=== PATIENT | male | born 1960 | race Caucasian/White ===

== ENCOUNTER 2019-01-20 08:59 | Day surgery (SDC) | payer OTHER ==
[2019-01-20] MEDS ORDERED: FENTAnyl 50 MCG/ML VIAL (11:18)
[2019-01-20] MEDS ORDERED: MIDAZOLAM 1 MG/ML 2 ML INJ ×2 (11:18)
== END 2019-01-20 12:04 | disposition home or self-care (01) ==
LOC: GIL 08:59
DX: K92.1 Melena (principal); K64.8 Other hemorrhoids; K21.0 Gastro-esophageal reflux disease with esophagitis; K29.60 Other gastritis without bleeding
CPT/HCPCS: 43239; 88305; 88312

== ENCOUNTER 2019-02-14 06:27 | Day surgery (SDC) | payer OTHER ==
[~2019-02-14 06:27] MED LIST: CEFAZOLIN 2 GM/50 ML (PMX) 50 ML IVPB
[2019-02-14] MEDS: BUPIVACAINE 0.25% (MPF) 30 ML INJ (06:56)
[2019-02-14] MEDS: SOD CHLORIDE 0.9% 1,000 ML IV (07:05)
[2019-02-14] MEDS ORDERED: MIDAZOLAM 1 MG/ML 2 ML INJ (07:50)
[2019-02-14] MEDS ORDERED: FENTAnyl 50 MCG/ML VIAL (07:50)
[2019-02-14] MEDS ORDERED: HYDROmorphONE 1 MG/5 ML IV SYRINGE IV ×2 (08:00)
[2019-02-14] MEDS ORDERED: CEFAZOLIN 1 GM INJ ×2 (08:01)
[2019-02-14] MEDS: LIDOCAINE 1%/EPI (1:100,000) (MDV) 20 ML (08:04)
[2019-02-14] MEDS ORDERED: IBUPROFEN 600 MG TAB PO (08:30)
[2019-02-14] MEDS ORDERED: ONDANSETRON 4 MG INJ IV (08:30)
== END 2019-02-14 10:00 | disposition home or self-care (01) ==
LOC: SDS 06:27
DX: E65 Localized adiposity (principal); L98.7 Excessive and redundant skin and subcutaneous tissue
CPT/HCPCS: 11404; 88307